=== PATIENT | female | born 1980 | race Caucasian/White ===

== ENCOUNTER 2018-08-18 06:34 | Day surgery (SDC) | payer BC ==
[~2018-08-18 06:34] MED LIST: Buffered Lidocaine 0.9% SYRIN* 5 ML/SYR SYRINGE INTRADERM ONE; Famotidine IV* 10 MG/ML 2 ML (20 mg) IV ONE
[2018-08-18] MEDS ORDERED: Buffered Lidocaine 0.9% SYRIN* 5 ML/SYR SYRINGE ONE (06:53)
[2018-08-18] MEDS ORDERED: Famotidine IV* 10 MG/ML 2 ML (20 mg) ONE (06:53)
[2018-08-18] MEDS ORDERED: Midazolam* 1 MG/ML 2 ML VIAL (2 MG) ONE (07:20)
[2018-08-18] MEDS ORDERED: Naloxone* 0.4 MG/ML 1 ML VIAL IV PRN (08:02)
[2018-08-18] MEDS ORDERED: DiMENhydriNATE IV* 50 MG/ML VIAL IV PUSH PRN (08:02)
[2018-08-18] MEDS ORDERED: PROCHLORPERAZINE INJ 5 MG/ML 2 ML VIAL IV PRN (08:02)
[2018-08-18 09:18] VITALS: BP 102/60
--- NOTE | 2018-08-19 02:21 | PRO ---
CC: Joel Young MD; Dr. Andersen * DATE OF PROCEDURE: 08/18/18 - [facility] PROCEDURE: EGD with biopsy. PRIMARY CARE PROVIDER: Joel Young MD INDICATION: Pre-bariatric surgery screening. Occasional reflux. Daily diarrhea. MEDICATIONS GIVEN: Anesthesia. DESCRIPTION OF PROCEDURE: Full disclosure of risks was reviewed with the patient as detailed on the consent form. The patient was placed in the left lateral decubitus position and monitored with continuous pulse oximetry, interval blood pressure monitoring, and direct observation. A bite-block was placed between the teeth. An Olympus gastroscope was then inserted into the patient's mouth, advanced down the esophagus, into the stomach, and into the distal duodenum. Findings are as described below. E: - Esophagus was a normal tubular structure. - The GE junction and Z-line occurred at 39 cm. - There was a slight textural change at the Z-line, although this irregularity was fairly subtle and did not extend more than a centimeter above the GE junction. G: - The scope was then slowly advanced into the stomach. - The stomach was notable for mild linear erythema and the antrum. - A biopsy was obtained for CLOtest. There were no erosions or ulcers. D: - The scope was then slowly advanced into the duodenum. - Duodenum was normal in appearance. There was no flattening of the villi, erosions, or ulcers. - Biopsies were taken from the bulb, second and third portion to rule out celiac disease given diarrhea. IMPRESSION: 1. Slight textural change at the Z-line 2. Mild linear erythema in the antrum. Biopsy obtained to rule out Helicobacter pylori. 3. Normal appearance of duodenum. Biopsies obtained to rule out celiac. FOLLOWUP: 1. Await pathology. 2. Trial PPI given her reflux symptoms 3. Follow-up in clinic within 4 to 8 weeks to follow up the GERD and diarrhea symptoms. [id number]/[facility] #: [id number] [facility]
== END 2018-08-18 09:42 | disposition home or self-care (01) ==
LOC: OR 06:34 → EDSTATUS 08:00 → OR 09:42
PROVIDERS: ATTEND Internal Medicine Gastroenterology
DX: E66.01 Morbid (severe) obesity due to excess calories (principal); K21.9 Gastro-esophageal reflux disease without esophagitis; R19.7 Diarrhea, unspecified; F41.8 Other specified anxiety disorders; R73.03 Prediabetes; Z79.84 Long term (current) use of oral hypoglycemic drugs; G47.33 Obstructive sleep apnea (adult) (pediatric); Z87.891 Personal history of nicotine dependence
CPT/HCPCS: 81025; 87077; 88305; J2250

== ENCOUNTER 2018-10-19 05:42 | Inpatient (IN) | payer BC ==
[~2018-10-19 05:42] MED LIST changes: -Famotidine IV* 10 MG/ML 2 ML (20 mg) IV ONE
--- OUTSIDE RECORDS SUMMARY | 2018-10-19 05:46 | XMS REPORT | Continuity of Care Document ---
:1980 External Reference #:[id number] Author Name Molly Ross MD Address [address] [place] [address] [place] [address] Care Team Providers Name Role Phone Jared Andersen MD Care Team Information Steward/Stewardess Dining Room Unavailable Joel Young MD Primary Care Physician Unavailable Payers Type Date Identification Numbers Payment Provider Subscriber Policy Number: [id number] Of CLAUDIO Desai PayID: [id number] [address] [address] [place] [address] Advance Directives Description No Information Available Problems Description No Information Family History Description No Information Available Social History Type Date Description Comments Sex Unknown Tobacco Use Start: Unknown End: Unknown Patient is a former smoker Smoking Status Reviewed: 09/28/18 Patient is a former smoker Allergies, Adverse Reactions, Alerts Date Description Reaction Status Severity Comments 07/20/2018 NSAIDs Active Medications Medication Date Status Form Strength Qnty SIG Indications Ordering Provider Omeprazole /10/ Active Capsules 20mg 90cap take [address] s capsule by Foor-Pess mouth daily. inMD take 30-60 minutes before a meal. Metformin HCL / Active Tablets 500mg Bordoni, 0000 [employer] Escitalopram / Active Tablets 10mg Goldstein,N Oxalate 0000 icole,[employer] Zyrtec Allergy / Active Tablets 10mg 1 by mouth Unknown 0000 every day CBD Oil / Active occasionally Unknown 0000 Glucosamine / Active Unknown Chondroitin 0000 Vitamin D / Hx Capsules [id number] Bordoni, (Ergocalcifero 0000 - Kimberly l) 09/27/ ,[employer] 2018 Immunizations Description No Information Available Vital Signs Date Vital Result Comment 09/28/2018 8:37am Height 66 inches 5'6" Weight 344.00 lb BP Systolic 128 mmHg BP Diastolic 72 mmHg Heart Rate 66 /min BMI (Body Mass Index) 55.5 kg/m2 07/20/2018 10:56am Height 66 inches 5'6" Weight 345.00 lb BP Systolic 156 mmHg BP Diastolic 84 mmHg Heart Rate 76 /min BMI (Body Mass Index) 55.7 kg/m2 Results Test Date Facility Test Result H/L Range Note Laboratory test 08/18/2018 [facility] Point of Care 110 mg/dL High 70-100 1 finding Glucose Laboratory test 08/18/2018 [facility] Clotest SEE RESULT 2 finding BELOW Laboratory test 08/18/2018 [facility] Surgical SEE RESULT 3 finding Pathology BELOW Laboratory test 08/18/2018 [facility] Point of Care 98 mg/dL N 70-100 4 finding Glucose 1 Size Maker: [id number] 2 SEE RESULT BELOW Name: TAPAN,JANNA : [address]: Molly Ross MD Acct: [id number] Unit: [id number] AGE: 38 Location: OR Re08/18/18 SEX: F Status: DEP SDC SPEC: [id number] CHECO: 08/18/[address]: Molly Momin MD REQ: [id number] RECD: 08/18/18 STATUS: ANGELIQUE RECINOS DR: Joel Young MD _ SOURCE: GAS ANTRUM SPDESC: ORDERED: Clotest Procedure Result Reported Site Clotest Final 08/19/18- 714 ML Clotest Negative * ML - Main Lab . END OF REPORT DEPARTMENT OF PATHOLOGY, [address] [place] [address] Chava De Jesus M.D. Director [facility] # [id number] SEE RESULT BELOW Name: JANNA DESAI : [address]: Molly Ross MD Acct: [id number] Unit: [id number] AGE: 38 Location: OR Re08/18/18 SEX: F Status: DEP SDC SPEC: [id number] CHECO: 08/18/[address]: Molly Momin MD REQ: [id number] RECD: 08/18/18 STATUS: COMP JORJE DR: Joel Young MD _ SOURCE: GAS ANTRUM SPDESC: ORDERED: Clotest Procedure Result Reported Site Clotest Final 08/19/18 11 ML Clotest Negative * ML - Main Lab . END OF REPORT DEPARTMENT OF PATHOLOGY, [address] [place] [address] Chava De Jesus M.D. Director [facility] # [id number] 3 SEE RESULT BELOW Name: JANNA DESAI : [address]: Molly Ross MD Acct: [id number] Unit: [id number] AGE: 38 Location: OR Re08/18/18 SEX: F Status: QUENTIN CANO SPEC: [id number] CHECO: 08/18/[address] [facility] [address]: Molly Momin MD REQ: [id number] RECD: 08/18/18 STATUS: KONSTANTIN RECINOS DR: Joel Andersen MD _ ORDERED: LEVEL 4 FINAL DIAGNOSIS Duodenum, biopsy: -- Benign small intestinal mucosa with no significant pathologic abnormalities. -- No evidence of villous blunting or increased intraepithelial lymphocytes. CLINICAL HISTORY Pre-bariatric surgery; diarrhea, occasional gastroesophageal reflux disease POST-OPERATIVE DIAGNOSIS EGD: esophagus - slight textural change at z line; gastroesophageal junction at 39 cm ( less than 1 cm); gastric - mild linear erythema in antrum, CLOtest; duodenum - normal appearance, biopsy to rule out celiac disease; conclusions: PPI or H2RA trial GROSS DESCRIPTION The specimen is received in formalin labeled, Biopsy Duodenum, and consists of a 0.8 by up to 0.6 x 0.1 cm aggregate of juarez-pink irregular soft tissue fragments which is submitted entirely in one cassette. Signed by and Reported on: Kimberly Young MD 08/19/18 1213 END OF REPORT DEPARTMENT OF PATHOLOGY, [address] [place] [address] Chava De Jesus M.D. Director [facility] # [id number] SEE RESULT BELOW Name: TAPANITZELJANNA : [address]: Molly Ross MD Acct: [id number] Unit: [id number] AGE: 38 Location: OR Re08/18/18 SEX: F Status: QUENTIN [facility] SPEC: [id number] CHECO: 08/18/[address] [facility] [address]: Molly Momin MD REQ: [id number] RECD: 08/18/18 STATUS: KONSTANTIN RECINOS DR: Joel Andersen MD _ ORDERED: LEVEL 4 FINAL DIAGNOSIS Duodenum, biopsy: -- Benign small intestinal mucosa with no significant pathologic abnormalities. -- No evidence of villous blunting or increased intraepithelial lymphocytes. CLINICAL HISTORY Pre-bariatric surgery; diarrhea, occasional gastroesophageal reflux disease POST-OPERATIVE DIAGNOSIS EGD: esophagus - slight textural change at z line; gastroesophageal junction at 39 cm ( less than 1 cm); gastric - mild linear erythema in antrum, CLOtest; duodenum - normal appearance, biopsy to rule out celiac disease; conclusions: PPI or H2RA trial GROSS DESCRIPTION The specimen is received in formalin labeled, Biopsy Duodenum, and consists of a 0.8 by up to 0.6 x 0.1 cm aggregate of juarez-pink irregular soft tissue fragments which is submitted entirely in one cassette. Signed by and Reported on: Kimberly Young MD 08/19/18 1213 END OF REPORT DEPARTMENT OF PATHOLOGY, [address] [place] [address] Chava De Jesus M.D. Director [facility] # [id number] SEE RESULT BELOW Name: JANNA DESAI : [address]: Molly Ross MD Acct: [id number] Unit: [id number] AGE: 38 Location: OR Re08/18/18 SEX: F Status: QUENTIN CANO SPEC: [id number] CHECO: 08/18/[address] [facility] [address]: Molly Momin MD REQ: [id number] RECD: 08/18/18 STATUS: KONSTANTIN RECINOS DR: Joel Andersen MD _ ORDERED: LEVEL 4 FINAL DIAGNOSIS Duodenum, biopsy: -- Benign small intestinal mucosa with no significant pathologic abnormalities. -- No evidence of villous blunting or increased intraepithelial lymphocytes. CLINICAL HISTORY Pre-bariatric surgery; diarrhea, occasional gastroesophageal reflux disease POST-OPERATIVE DIAGNOSIS EGD: esophagus - slight textural change at z line; gastroesophageal junction at 39 cm ( less than 1 cm); gastric - mild linear erythema in antrum, CLOtest; duodenum - normal appearance, biopsy to rule out celiac disease; conclusions: PPI or H2RA trial GROSS DESCRIPTION The specimen is received in formalin labeled, Biopsy Duodenum, and consists of a 0.8 by up to 0.6 x 0.1 cm aggregate of juarez-pink irregular soft tissue fragments which is submitted entirely in one cassette. Signed by and Reported on: Kimberly Young MD 08/19/18 1213 END OF REPORT DEPARTMENT OF PATHOLOGY, [address] [place] [address] Chava De Jesus M.D. Director [facility] # [id number] 4 Size Maker: [id number] Procedures Date Code Description Status 08/18/2018 28208 EGD+Biopsy Single Or Multiple Completed Encounters Type Date Location Provider Dx Diagnosis Office Visit 07/20/2018 Gastroenterology Molly Z01.818 Encounter for other 11:15a [facility] [place] preprocedural examination E66.01 Morbid (severe) obesity due to excess calories R19.7 Diarrhea, unspecified K21.9 Gastro-esophageal reflux disease without esophagitis Z68.43 Body mass index (BMI) 50-59.9 , adult Plan of Treatment Future Appointment(s):01/04/2019 8:00 am - Molly Ross MD at Gastroenterology [facility]09/28/2018 - Molly Ross MDE66.01 Morbid (severe) obesity due to excess bqonpzrmB12.9 Gastro-esophageal reflux disease without lqdgacrmqtsG73.7 Diarrhea, unspecified
[2018-10-19] MEDS ORDERED: Famotidine IV* 10 MG/ML 2 ML (20 mg) IV ONE (06:00)
[2018-10-19] MEDS ORDERED: Dexamethasone IV* 4 MG/ML 1 ML (4 MG) IV SLOW PU ONE (06:00)
[2018-10-19] MEDS ORDERED: Heparin VIAL(*) 5000 UNITS/ML VIAL (FIVE THOUSAND) ONE (06:19)
[2018-10-19] MEDS ORDERED: Dexamethasone IV* 4 MG/ML 1 ML (4 MG) ONE (06:20)
[2018-10-19] MEDS ORDERED: ceFAZolin 2 GM PREMIX in ORs 2 GM/50 ML BAG IVPB ONE (06:20)
[2018-10-19] MEDS ORDERED: ceFAZolin 1 GM ADVAN(*) 1 GM ADDV.VIAL IVPB ONE (06:20)
[2018-10-19] MEDS ORDERED: Famotidine IV* 10 MG/ML 2 ML (20 mg) ONE (06:20)
[2018-10-19] MEDS ORDERED: Rocuronium* 10 MG/ML VIAL ONE (06:59)
[2018-10-19] MEDS ORDERED: fentaNYL* 50 MCG/ML 5 ML VIAL (250 MCG VIAL) ONE (06:59)
[2018-10-19] MEDS ORDERED: Lidocaine 2% PF * 5 ML VIAL ONE (07:00)
[2018-10-19] MEDS ORDERED: Succinylcholine* 20 MG/ML 10 ML VIAL ONE (07:00)
[2018-10-19] MEDS ORDERED: Propofol* 10 MG/ML 20 ML BTL ONE (07:00)
[2018-10-19] MEDS ORDERED: Midazolam* 1 MG/ML 2 ML VIAL (2 MG) ONE (07:00)
[2018-10-19] MEDS ORDERED: Methylene Blue 0.5 %* 50 MG/10 ML AMP IV ONE (07:05)
[2018-10-19] MEDS ORDERED: Bupivacaine 0.25% EPI 200,000* 30 ML SDV ONE (07:06)
[2018-10-19] MEDS ORDERED: Atracurium* 10 MG/ML 10 ML VIAL ONE (08:24)
[2018-10-19] MEDS ORDERED: Glycopyrrolate IV* 0.2 MG/ML 1 ML VIAL ONE (09:43)
[2018-10-19] MEDS ORDERED: Ondansetron INJ* 2 MG/ML VIAL ONE (09:43)
[2018-10-19] MEDS ORDERED: Naloxone* 0.4 MG/ML 1 ML VIAL IV PRN (09:43)
[2018-10-19] MEDS ORDERED: DiMENhydriNATE IV* 50 MG/ML VIAL IV PUSH PRN (09:43)
[2018-10-19] MEDS ORDERED: Acetaminophen IV 1GM/100ML * 1,000 MG/100 ML VIAL IVPB ONE (09:43)
[2018-10-19] MEDS ORDERED: Ketorolac INJ* 30 MG/ML 1 ML VIAL IV PRN (09:43)
[2018-10-19] MEDS ORDERED: PROCHLORPERAZINE INJ 5 MG/ML 2 ML VIAL IV PRN (09:43)
[2018-10-19] MEDS ORDERED: Neostigmine Methylsulfate* 2 MG/2 ML SYRINGE ONE (09:44)
[2018-10-19] MEDS ORDERED: fentaNYL* 50 MCG/ML 2 ML VIAL (100 MCG VIAL) ONE ×3 (10:07→12:22)
[2018-10-19] MEDS ORDERED: Acetaminophen IV 1GM/100ML * 100 ML ONE (10:29)
[2018-10-19] MEDS ORDERED: Ketorolac INJ* 30 MG/ML 1 ML VIAL ONE (10:29)
[2018-10-19] MEDS: fentaNYL* 50 MCG/ML 2 ML VIAL (100 MCG VIAL) IV PRN ×4 (10:43→12:39)
[2018-10-19] MEDS ORDERED: DiMENhydriNATE IV* 50 MG/ML VIAL ONE (10:55)
[2018-10-19] MEDS ORDERED: Morphine VIAL* 4 MG/ML VIAL (1 ml vial) ONE (10:58)
[2018-10-19] MEDS ORDERED: Acetaminophen ADULT LIQ* 650 MG/20.3 ML UDC PO PRN (11:04)
--- NOTE | 2018-10-19 11:04 | OP ---
Operative Report - Blank - Operative Report Date of Operation: 10/19/18 Note: Brief Operative Note Preop Dx: Morbid obesity; cholelithiasis Postop Dx: same Procedure: Laparoscopic cholecystectomy; Hernan en Y gastric bypass Anesthesia: GET Surgeon: Ganesh [employer] Supervisor: AARON Porras Fluids: 1300 ml RL EBL: < 50 ml Specimen: gallbladder Drains: none Findings: dictated
[2018-10-19] MEDS: Morphine VIAL* 4 MG/ML VIAL (1 ml vial) IV PRN ×2 (11:24→11:34)
[2018-10-19] MEDS ORDERED: HYDROmorphone INJ1* 1 MG/ML SYRINGE IV PRN (11:26)
[2018-10-19] MEDS ORDERED: Dextrose 50% Syringe 50 ML* 25 GM/50 ML SYRINGE ONE (11:39)
[2018-10-19] MEDS: Ondansetron INJ* 2 MG/ML VIAL IV PRN ×2 (13:57→20:48)
[2018-10-19] MEDS: HYDROmorphone INJ1* 1 MG/ML SYRINGE IV PRN ×3 (14:24→20:50)
[2018-10-19] MEDS: Famotidine IV* 10 MG/ML 2 ML (20 mg) IV SLOW PU SCH (20:52)
--- NOTE | 2018-10-19 21:01 | OP ---
CC: [facility]; Joel Young MD * DATE OF OPERATION: 10/19/18 - ROOM #351 DATE OF : [birth year] SURGEON: Jared Andersen MD TILESETTER: AARON Solitario ANESTHESIOLOGIST: Dr. Levi. ANESTHESIA: General endotracheal. PRE-OP DIAGNOSES: Clinically severe obesity and cholelithiasis. POST-OP DIAGNOSIS: Clinically severe obesity and cholelithiasis. OPERATIVE PROCEDURE: Laparoscopic Ehrnan-en-Y gastric bypass and laparoscopic cholecystectomy. ESTIMATED BLOOD LOSS: Less than 50 mL. IV FLUIDS: 1.3 L crystalloid. SPECIMEN: Gallbladder. DRAINS: None. COMPLICATIONS: None. COUNTS: The instrument, needle, and sponge counts were correct. DESCRIPTION OF PROCEDURE: The patient was brought to the operating room and placed on the table supine. Sequential compression devices were placed on both lower extremities. General anesthesia was administered. Her abdomen was prepped and draped in the usual sterile fashion. She received appropriate intravenous antibiotics and time-out was performed. Local anesthetic was infiltrated into the skin and soft tissue prior to making each incision. Entry into the abdomen was through a left upper quadrant incision accommodating a 12-mm optical trocar. After accessing the peritoneal cavity, carbon dioxide was insufflated to a pressure of 15 mmHg. Under direct visualization, 12-mm bladeless trocars were placed in the supraumbilical midline and right upper quadrant. 5-mm trocars were placed in the right upper quadrant medially and subxiphoid position. The gallbladder was addressed first. The infundibulum was identified. It was grasped and retracted cephalad. The peritoneum investing the gallbladder over the area of the infundibulum was incised with electrocautery and dissected free. Blunt and sharp dissection were used to dissect out the cystic duct and the cystic artery and critical view was achieved. After this, the artery was divided with the LigaSure. The cystic duct was doubly clipped and divided and then the gallbladder was freed from attachments to the liver bed using hook cautery and staying in an avascular plane. After completing the dissection, the gallbladder was placed into an endoscopic retrieval bag and positioned above the liver to be retrieved at the end of the case. The procedure then went forth with the gastric bypass. The 5-mm subxiphoid port was replaced with a Jacky liver retractor and then 5- mm port was placed further lateral in the left upper quadrant. Gastric anatomy appeared normal. Liver anatomy appeared normal. The gastric pouch was created with a perigastric dissection on the lesser curvature at the second crossing vein sacrificing these vessels. Entry into the lesser sac was achieved and then with several firings of the EndoGIA stapler with juarez cartridges, a gastric pouch was created approximating 15 to 30 mL volume. Staple lines were noted to be intact and hemostatic. Next, the omentum was mobilized from the lower abdomen and it was divided down the midline. With the transverse colon retracted cephalad, the ligament of Treitz was identified and the jejunum was measured out approximately 50 cm, at which point the loop of jejunum was sutured to the lateral staple line of the gastric pouch with interrupted 2-0 silks. The gastrojejunal anastomosis was created using a 30-mm juarez linear stapler. The common gastroenterotomy was run closed with 3-0 PDS. The loop was divided to the left of the anastomosis to complete the gastrojejunal anastomosis. The anastomosis was then tested with methylene blue dye solution instilled through the 34-Kiswahili orogastric tube. No leak was identified. The Hernan limb was measured out for a length of 75 cm and at this point a functional end-to-side jejunojejunostomy was created with a 60-mm length HARJINDER stapler. The common enterotomy was again run closed with running 3- 0 PDS. The mesenteric defect was closed with interrupted [id number] 3-0 silks. Hemostasis was assured. Jacky liver retractor was removed. Gallbladder was retrieved. All the remaining ports were removed as the carbon dioxide was released. Skin incisions were closed with 4-0 Monocryl in a subcuticular fashion. Steri-Strips were applied. The patient tolerated the procedure well, was extubated and transferred to Recovery in stable condition. [id number]/[facility] #: [id number] [facility]IT[facility]
[2018-10-19] MEDS: Heparin VIAL(*) 5000 UNITS/ML VIAL (FIVE THOUSAND) SUBCUT SCH (21:51)
[2018-10-20] MEDS: HYDROmorphone INJ1* 1 MG/ML SYRINGE IV PRN (01:59)
[2018-10-20] MEDS: Heparin VIAL(*) 5000 UNITS/ML VIAL (FIVE THOUSAND) SUBCUT SCH ×3 (06:06→21:53)
[2018-10-20] MEDS: HYDROcodone/ACET. 7.5/325 LIQ* 15 ML UDC PO PRN ×5 (08:15→22:00)
[2018-10-20] MEDS: Ondansetron INJ* 2 MG/ML VIAL IV PRN (08:16)
[2018-10-20] MEDS: CMC: Escitalopram (NF) 10 MG TAB PO SCH (08:17)
[2018-10-20] MEDS: Famotidine IV* 10 MG/ML 2 ML (20 mg) IV SLOW PU SCH ×2 (08:17→21:52)
--- NOTE | 2018-10-20 09:19 | PN ---
Progress Note - Progress Note Date of Service: 10/20/18 Note: S: POD #1. Doing fairly well: pain controlled; just started sipping H2O; no N/ V. No CP or SOB. Some discomfort in the shoulder areas.. O: Vital Signs - 8 hr 10/20/18 10/20/18 10/20/18 01:59 03:00 04:34 Temperature 98.3 F Pulse Rate 80 Respiratory 20 18 17 Rate Blood Pressure 151/79 (mmHg) O2 Sat by Pulse 100 Oximetry 10/20/18 10/20/18 10/20/18 06:10 07:19 08:15 Temperature 98.8 F Pulse Rate 73 79 Respiratory 16 18 20 Rate Blood Pressure 128/65 127/70 (mmHg) O2 Sat by Pulse 94 96 Oximetry Intake and Output Last 24 Hours 10/18/18 10/19/18 10/20/18 10/21/18 06:59 06:59 06:59 06:59 Intake Total 3362 Output Total 1750 Balance 1612 Weight 324 lb Intake: IV Fluids 3362 CEFAZOLIN 3GM IN 100ML NS 100 LR 3262 Oral 0 Output: Urine 1750 Gen: appears comfortable; NAD Heart: reg Lungs: clear ant Abd: lap sites clean and dry under dsgs; soft; min incisional tenderness A: s/p Lap ana and gastric bypass, doing well P: start samuel clears; cont ambulation; IS use.
[2018-10-20] MEDS: D5W 1/2 NS KCl 20 Meq 1000 ML* 1,000 ML IV SCH ×2 (12:54→20:14)
[2018-10-20] MEDS ORDERED: Cetirizine* 10 MG TAB PO SCH (18:00)
[2018-10-21] MEDS: D5W 1/2 NS KCl 20 Meq 1000 ML* 1,000 ML IV SCH (04:14)
[2018-10-21] MEDS: Heparin VIAL(*) 5000 UNITS/ML VIAL (FIVE THOUSAND) SUBCUT SCH (05:37)
[2018-10-21] MEDS ORDERED: Acetaminophen ADULT LIQ* 650 MG/20.3 ML UDC PO PRN (09:00)
--- NOTE | 2018-10-21 09:14 | PN ---
Progress Note - Progress Note Date of Service: 10/21/18 Note: S: POD #2. Had temp (101.8) last night; down this a.m., though she feels "chilled". No N/V. Edna samuel clears well. Does have some pain in both the Right flank/scapular area as well as the L shoulder, the former being worse with activity/walking, the latter worse with deep breathing. O: current T 98.1 Vital Signs - 8 hr 10/21/18 10/21/18 10/21/18 01:46 04:03 07:26 Temperature 99.7 F 101.8 F 99.5 F Pulse Rate 85 95 86 Respiratory 18 18 16 Rate Blood Pressure 117/44 117/45 111/57 (mmHg) O2 Sat by Pulse 100 100 95 Oximetry 10/21/18 08:00 Temperature Pulse Rate Respiratory 16 Rate Blood Pressure (mmHg) O2 Sat by Pulse 95 Oximetry Intake and Output Last 24 Hours 10/19/18 10/20/18 10/21/18 10/22/18 06:59 06:59 06:59 06:59 Intake Total 3362 3896 Output Total 1750 2750 700 Balance 1612 1146 -700 Weight 324 lb Intake: IV Fluids 3362 1586 CEFAZOLIN 3GM IN 100ML NS 100 D5W 1/2 NS 20 meq KCL 900 LR 3262 686 IVPB 990 D5W 1/2 NS 20 meq KCL 990 Oral 0 1320 Output: Urine 1750 2750 700 Other: # Bowel Movements 0 Gen: somewhat anxious, but NAD Heart: reg Lungs: clear Abd: +BS; lap sites clean; few steristrips replaced; soft; appropriate incisional tenderness A: postop fever, s/p lap ana and gastric bypass P: discussed w/ Dr. Andersen; will check labs, U/A, UGI
[2018-10-21] MEDS: CMC: Escitalopram (NF) 10 MG TAB PO SCH (09:40)
[2018-10-21] MEDS: Famotidine IV* 10 MG/ML 2 ML (20 mg) IV SLOW PU SCH (09:40)
[2018-10-21] MEDS: Ondansetron INJ* 2 MG/ML VIAL IV PRN (10:10)
[2018-10-21 10:45] LABS: ABS Basophils 0.1 10^3/ul (0-0.2); ABS Eosinophils 0.1 10^3/ul (0-0.6); ABS Lymphocytes 1.5 10^3/ul (1.0-4.8); ABS Monocytes 0.6 10^3/ul (0-0.8); ABS Neutrophils 4.9 10^3/ul (1.5-7.7); ABS Nucleated RBC 0 10^3/ul; Hematocrit 34 % (35-47); Hemoglobin 11.4 g/dl (12.0-16.0); Lymphocyte % 20.9 %; Mean Corpuscular HGB Conc 34 g/dl (31-36); Mean Corpuscular Hemoglobin 28 pg (27-31); Mean Corpuscular Volume 84 fL (80-97); Mean Platelet Volume 9.6 fL (7.4-10.4); Nucleated Red Blood Cells % 0; Platelet Count 215 10^3/ul (150-450); Red Blood Count 4.02 10^6/ul (4.00-5.40); Red Cell Distribution Width 14 % (10.5-15); White Blood Count 7.3 10^3/ul (3.5-10.8)
[2018-10-21 11:02] LABS: EGFR Non-African American 100.8 (>60)
[2018-10-21 12:39] VITALS: BP 121/76
[2018-10-21 13:25] LABS: Urine Appearance Clear; Urine Blood Negative (Negative); Urine Color Straw; Urine Ketones Negative (Negative); Urine Protein Negative (Negative); Urine Specific Gravity 1.003 (1.010-1.030); Urine Urobilinogen Negative (Negative)
--- NOTE | 2018-10-21 15:26 | DS ---
CC: Dr. Joel Young; [facility] * DATE OF ADMISSION: 10/19/2018. DATE OF DISCHARGE: 10/21/2018. ATTENDING SURGEON: Dr. Jared Andersen * (AARON Solitario dictating). HOSPITAL COURSE: Please refer to admission history and physical and operative note for details. The patient was taken to the operating room on 10/19/2018 at which time she underwent laparoscopic cholecystectomy and Hernan-en-Y gastric bypass. There were no immediate complications from surgery and she was doing well on postoperative day one, tolerating bariatric clear liquids. She did develop a temperature of 101.8 early on the morning of postop day two and therefore had lab work and an upper GI study done. These were all essentially normal with the upper GI showing patency and no evidence of leak. The patient was also seen by Dr. Andersen who felt that she was doing well enough to be discharged (see separate progress note from that date). Instructions were reviewed with the patient regarding wound care, diet, and activity. She also understands to call [facility] or our office directly if she has any further problems , particularly with significant fevers. She will otherwise follow-up at [facility] with Dr. Andersen next week as scheduled. AARON SOLITARIO [id number]/[facility] #: [id number] [facility]rika
== END 2018-10-21 13:15 | disposition home or self-care (01) | DRG 403 ==
LOC: AA 05:42 → SSU 13:41
PROVIDERS: ADMIT Surgery; ATTEND Surgery
PROC: 0FT44ZZ Resection of Gallbladder, Percutaneous Endoscopic Approach (ICD-10-PCS; principal; 2018-10-19 07:30)
PROC: 0D164ZA Bypass Stomach to Jejunum, Percutaneous Endoscopic Approach (ICD-10-PCS; 2018-10-19 07:30)
DX: E66.01 Morbid (severe) obesity due to excess calories (principal); K21.9 Gastro-esophageal reflux disease without esophagitis; K80.20 Calculus of gallbladder without cholecystitis without obstruction; G47.33 Obstructive sleep apnea (adult) (pediatric); F41.9 Anxiety disorder, unspecified; F32.9 Major depressive disorder, single episode, unspecified; G89.29 Other chronic pain; M54.5 Low back pain; E78.5 Hyperlipidemia, unspecified; E11.9 Type 2 diabetes mellitus without complications; M19.90 Unspecified osteoarthritis, unspecified site; Z68.43 Body mass index [BMI] 50.0-59.9, adult; Z88.8 Allergy status to other drugs, medicaments and biological substances; Z82.49 Family history of ischemic heart disease and other diseases of the circulatory system; Z80.42 Family history of malignant neoplasm of prostate; Z80.8 Family history of malignant neoplasm of other organs or systems; Z83.49 Family history of other endocrine, nutritional and metabolic diseases; Z87.891 Personal history of nicotine dependence; R50.82 Postprocedural fever
CPT/HCPCS: 36415; 74246; 80048; 81003; 81025; 82947; 85025; 88304; A9270-GY; C1776; J0330; J0690; J1100; J1170; J1240; J1644; J1885; J2250; J2270; J2405; J2704; J3010